=== PATIENT | male | born 1970 | race Caucasian/White ===

== ENCOUNTER 2024-06-23 17:18 | Outpatient (CLI) | payer OTHER, SELFPAY | END 2024-06-23 17:19 | disposition home or self-care (01) | PROVIDERS: Visit Provider Student in an Organized Health Care Education/Training Program | DX: S89.92XA Unspecified injury of left lower leg, initial encounter (principal); V49.40XA Driver injured in collision with unspecified motor vehicles in traffic accident, initial encounter; Y92.410 Unspecified street and highway as the place of occurrence of the external cause | CPT/HCPCS: A0425; A0433 ==

== ENCOUNTER 2024-06-23 18:10 | Emergency (ER) | payer OTHER, SELFPAY ==
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
[2024-06-23 18:21] VITALS: BP 181/97; PULSE 89; RESP 20; TEMP 36.4; O2SAT 98; BMI 35.0
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
--- OUTSIDE RECORDS SUMMARY | 2024-06-23 19:22 | XMS_ITS | Clinical Summary ---
Author Organization 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 Primary Care Provi brii Source Comments Patient records contain information from all sites at [facility]. For routine questions regarding patient records, call [phone] during business hours, M-F 8:00 AM - 5:00 PM Central Time. Record requests for emergency care only can be directed to [phone] at any time.[facility] Allergies Active Allergy Reactions Criticality Noted Date Comments Sulfamethoxazole-Trimet hoprim Other (see comments) 10/29/2010 Decreased platelet count Tetracycline Rash 05/21/2018 Medications * This document contains information received from the source organization and may not represent a complete record from that organization. cholecalciferol (VITAMIN D3) 25 mcg (1,000 Unit) capsule Take 1,000 Units by mouth daily. Active diclofenac sodium (VOLTAREN) 1 % gel Apply topically as needed. 9 Active multivit-min/foli c/vit K/lycop (MEN'S 50 PLUS MULTIVITAMIN ORAL) Take 1 tablet by mouth daily. Active omega-3 fatty acids-fish oil 300-1,000 mg capsule Take 1 capsule by mouth daily. Active UNABLE TO FIND Take 1 tablet by mouth daily. Misc Natural Products (OSTEO BI-FLEX TRIPLE STRENGTH PO) Active pantoprazole (Protonix) 40 mg EC tablet take 1 tablet by mouth every day before breakfast 90 tablet 3 4 Active lisinopril-hydroC HLOROthiazide 20-12.5 mg per tablet take 1 tablet by mouth every day 90 tablet 3 4 Active naproxen (Naprosyn) 500 mg tabletIndications :Pain Knee Left take 1 tablet by mouth twice a day as needed for pain 30 tablet 4 Active Active Problems Problem Noted Date Diagnosed Date Pain Back Thoracic 04/10/2023 Assessment & Plan (04/10/2023 6:13 PM SR. MANAGER MARKETING): I discussed with the patient might be most efficacious to proceed with a chest radiograph. I discussed that the yield may be low since he has not having any obvious thoracic related symptoms but it would be important to rule out any obvious inflammatory or other condition that might be occurring in the thorax. We can then proceed as clinically indicated with further workup. I discussed myofascial pain with him which might be the most likely working diagnosis. Pain Shoulder Left 04/10/2023 Assessment & Plan (04/10/2023 6:14 PM SR. MANAGER MARKETING): I discussed with the patient I was pleased that his shoulder is not causing him significant difficulty at this time, however I believe it would be reasonable to proceed with a shoulder radiograph, and I have outlined some home physical therapy exercises for him. We will use the radiograph is an anchor that if he has worsening shoulder pain we could consider corticosteroid injection in the subacromial region or proceed as indicated by clinical examination and radiograph. He is in agreement. We will proceed with same Hyperlipidemia 04/10/2023 Pain Knee Left 12/09/2022 Overview (12/09/2022): 12/09/22 David is here for we exam of his knee. He was seen by here October 29 for knee pain and swelling. He was having difficulties with flexion at the time and pain on the outside of his knee. Since his last exam his knee pain and swelling have improved. Continues to have difficulties with full flexion of the knee. He also continues to have some mild swelling of the knee especially on the upper lateral knee. He has been using naproxen as needed for pain which has been very helpful as well as a knee brace when he is at work. Aggravating symptoms include flexion and kneeling and going downstairs. He initially injured his knee 2-3 years ago when he was getting down from a ladder and missed the last step causing him to land on his left foot and twist his knee. He was never seen for this, felt like his knee gradually improved but never completely resolved. Denies any known injury with this most recent episode. Assessment & Plan (12/09/2022 10:08 AM CDT): Knee exam shows swelling along the joint line. I am unable to really reproduce any pain or any laxity of the knee. I do suspect he may have some arthritis. I think it would be helpful to start with x-ray. I have advised him to [facility] and have given him an outside referral. Continue naproxen as needed. If not improving with physical therapy we could consider injection. Because he has no weakness of the knee or abnormal exam findings, I discussed with him that I do not think MRI is appropriate. Spur Calcaneal Left 09/05/2020 Primary Osteoarthritis Knee Left 08/28/2018 Gastroesophageal Reflux Disease Without Esophagi tis 06/05/2018 Hypercholesterolemia 06/05/2018 Assessment & Plan (04/10/2023 6:14 PM SR. MANAGER MARKETING): I discussed with the patient is very reasonable to check his hemoglobin A1c and we will proceed accordingly. I can then report back to him Hypertension Essential Primary 06/05/2018 Immunizations Immunization Administration Dates Next Due H1N1 All Forms 04/04/2009 HepA Adult 12/09/2022(Deferred: Patient dec mariannezahida) HepB Adult (HEPLISAV-B) 12/09/2022(Deferred: Pat ient decision) Influenza TIV (IM) 12/23/2019,12/03/2011, 011 Influenza, Injectable, Mdck, Quadrivalent 01/08/2023,01/01/2022,01/02/2021 Influenza, Injectable, Quadrivalent 01/04/2020,1 ,12/12/2015 Influenza, Seasonal, Injectable 12/23/2019,12/02,12/04/2010 RZV (SHINGRIX) 12/09/2022(Deferred: Patient dec mariannezahida) Td (Adult), adsorbed 06/22/2003,12/22/1998,11/06 Td, (Adult) Unspecified 11/06/1988 Tdap 12/09/2022, 3(Deferred: Patient decision - Will receive at another time),06/17/2012 influenza trivalent vaccine (6 months and older)(PF) 02/03/2024 influenza vaccine quad (FLUZONE/FLUARIX) (6 months and older)(PF) 12/10/2016,12/01/2012 Family History Medical History Relation Name Comments Coronary artery disease Father Ketan Trip le bypass 2018 Hypertension Father Ketan Other cancer Father Ketan Bladder cancer, 2017 Prostate cancer Father Ketan 55 y/o Rheum arthritis Father Ketan 2017 Skin cancer Father Ketan Face, ears, arm s Relation Name Status Comments Father Ketan Social History Tobacco Use Types Packs/Day Years Used Date Smoking Tobacco: Former Cigarettes 0.5 22 0 03/24/1989 - 03/24/2011 Smokeless Tobacco: Former Chew Quit: 01/31/2015 Tobacco Cessation:Counseling Given: Not Answered Alcohol Use Standard Drinks/Week Comments Yes 28 (1 standard drink = 0.6 oz pu re alcohol) [facility] [employer] Answer Date Recorded In the past 12 months has e [employer], oil, or water [employer] threatened to shut off services in your home? No 06/20/2024 Humiliation, Afraid, Rape, and Kick questionnair e Answer Date Recorded Within the last year, have y ou been afraid of your partner or ex-partner? No 10/28/2022 Within the last year, have y ou been humiliated or emotionally abused in other ways by your partner or ex-partner? No Within the last year, have y ou been kicked, hit, slapped, or otherwise physically hurt by your partner or ex-partner? No 10/28/2022 Within the last year, have y ou been raped or forced to have any kind of sexual activity by your partner or ex-partner? No 10/28/2022 Social Connection and Isolat ion Panel [NHANES] Answer Date Recorded In a typical week, how many times do you talk on the phone with family, friends, or neighbors? More than three times a week 07/10/2021 How often do you get togethe r with friends or relatives? Once a week 07/10/2021 How often do you attend [facility] or moravian services? More than 4 times per year 07/10/2021 Do you belong to any clubs o r organizations such as hoahaoism groups, unions, fraternal or athletic groups, or school groups? No 07/10/2021 How often do you attend meet ings of the clubs or organizations you belong to? Patient declined 07/10/2021 Are you , , di vorced, , never , or living with a partner? 07/10/2021 AUDIT-C Answer Date Recorded Q1: How often do you have a drink containing alcohol? 4 or more times a week 07/10/2021 Q2: How many drinks containi ng alcohol do you have on a typical day when you are drinking? 5 or 6 Q3: How often do you have si x or more drinks on one occasion? Weekly 07/10/2021 Overall Financial Resource Strain (CARDIA) Answe r Date Recorded How hard is it for you to pa y for the very basics like food, housing, medical care, and heating? Not hard at all 10/28/2022 PHQ-2 Answer Date Recorded PHQ-2 Score 0 04/10/2023 [facility] - Occupational Stress Questionnaire Answer Date Recorded Do you feel stress - tense, restless, nervous, or anxious, or unable to sleep at night because your mind is troubled all the time - these days? Not at all 07/10/2021 Exercise Vital Sign Answer Date Recorde d On average, how many days pe r week do you engage in moderate to strenuous exercise (like a brisk walk)? 0 days 06/20/2024 On average, how many minutes do you engage in exercise at this level? 0 min 06/20/2024 Hunger Vital Sign Answer Date Recorded Within the past 12 months, y ou worried that your food would run out before you got the money to buy more. Never true 06/21/19 25 Within the past 12 months, t he food you bought just didn't last and you didn't have money to get more. Never true 06/20/2024 PRAPARE - Transportation Answer Date Re corded In the past 12 months, has l ack of transportation kept you from medical appointments or from getting medications? No 05/24 In the past 12 months, has l ack of transportation kept you from meetings, work, or from getting things needed for daily living? No 06/20/2024 Nutrition Answer Date Recorded On average, how many serving s of fruits and vegetables do you eat per day (serving size is equal to 1 cup or approximately the size of a tennis ball)? 0-2 06/20/2024 Dental Answer Date Recorded Dental: Regular Dentist Yes 05/10/19 Employment Answer Date Recorded Employment status Employed and actively working without restrictions 06/20/2024 Housing Stability Answer Date Recorded What is your living situation today? [facility] 06/20/2024 Education Answer Date Recorded What is the highest level of school you have completed or the highest degree you have received? Associate degree: occupational, technical, or vocational program 05/10/2021 Sex and Gender Information Value Date Recorded Sex Assigned at Male 05/10/2021 7:34 PM SR. MANAGER MARKETING Legal Sex Male 6:42 AM SR. MANAGER MARKETING Gender Identity Male 05/10/2021 7:34 PM SR. MANAGER MARKETING Sexual Orientation Straight 05/10/2021 7: 34 PM SR. MANAGER MARKETING Last Filed Vital Signs Vital Sign Reading Time Taken Comments Blood Pressure 127/77 04/10/2023 8:46 AM SR. MANAGER MARKETING Pulse 61 04/10/2023 8:46 AM SR. MANAGER MARKETING Temperature 36.6 C (97.9 F) 07/29/2022 2:16 PM CDT Respiratory Rate 15 11/13/2021 12:09 PM CDT Oxygen Saturation 96% 11/13/2021 12:09 PM CDT Inhaled Oxygen Concentration - - Weight 122 kg (269 lb 13.5 oz) 04/10/2023 8:46 A M SR. MANAGER MARKETING Height 182.1 cm (5' 11.69) 04/10/2023 8:[address] Body Mass Index 36.91 04/10/2023 8:46 AM SR. MANAGER MARKETING Plan of Treatment Upcoming Encounters Date Type Department Care Team (Late st Contact Info) Description 06/25/2024 9:00 AM CDT Nurse Only Department of Family Medicine, [facility], in [place], [place] [address] [place] [address] Rustam Lopez M.D., M.S. [address] [place] [address] Health Maintenance Due Date Last Done Comments CT Colonography 1970 Cologuard 1970 FIT 1970 HIV Screening 1970 Hepatitis C Screening 1970 Visit: Chronic Disease, age 18+ 1970 Hepatitis A Vaccines (1 of 2 - Risk 2-dose series) 1989 Hepatitis B Vaccines (1 of 3 - 19+ 3-dose series) 1989 Pneumococcal vaccine (50+ years) (1 of 1 - PCV) 2020 Zoster Vaccines (1 of 2) 2020 COVID-19 Vaccine (3 - season) 2023 02/09/2021, 12/07/2020 Depression Screening (Annual PHQ-2) 03/24/2024 Office Visit for Blood Pressure Check / Re-check 04/10/2024 04/10/2023 Creatinine Level (Kidney Function Test) 10/12/2024 10/13/2023, 04/10/2023, 08/05/2022, Additional history exists Lipid (Cholesterol) Screening 10/12/2024 10/13/2023, 08/05/2022, 08/17/2020, Additional history exists Potassium Level 10/12/2024 10/13/2023, 03/24, 08/05/2022, Additional history exists Sodium Level 10/12/2024 10/13/2023, 07/22, 08/17/2020, Additional history exists Fasting Glucose for Diabetes Screening 10/12/2026 10/13/2023, 04/10/2023, 08/05/2022 Colonoscopy 11/13/2028 11/13/2021, 11/13/2021 Colorectal Cancer Screening 11/13/2028 DTaP,Tdap,and Td Vaccines (4 - Td or Tdap) 12/09/2032 12/09/2022, 06/17/2012, 06/22/2003, Additional history exists Influenza Vaccine Completed 02/03/2024, , 01/01/2022, Additional history exists IPV Vaccines Aged Out No longer eligi ble based on patient's age to complete this topic Procedures Procedure Name Priority Date/Time Associated Diagnosis Comments LIPID PANEL, S Routine 10/13/2023 10:01 AM CDT Hypercholesterolemia BASIC METABOLIC PANEL, S/P Routine 10/13/2023 10:01 AM CDT Monitoring For Therapeutic Drug Therapy COLONOSCOPY Routine 11/13/2021 11:00 AM CDT Screening Colon Cancer Average Risk from Last 3 Months or Most Recently Relevant to Health Maintenance Results * (ABNORMAL) Lipid Panel (10/13/2023 10:01 AM CDT) Triglycerides 155(H) mg/dL 10/13/2023 1:39 PM CDT DTL Comment: ----REFERENCE VALUE---- Normal: <150 mg/dL Borderline High: 150-199 mg/dL High: 200-499 mg/dL Very High: > or =500 mg/dL Cholesterol, Total 220(H) mg/dL 2023 1:39 PM CDT DTL Comment: ----REFERENCE VALUE---- Desirable: < 200 mg/dL Borderline High: 200 - 239 mg/dL High: > or = 240 mg/dL Cholesterol, LDL, Calculated 152(H) mg/dL 10/13/2023 1:39 PM CDT DTL Comment: ----REFERENCE VALUE---- Desirable: <100 mg/dL Above Desirable: 100-129 mg/dL Borderline High: 130-159 mg/dL High: 160-189 mg/dL Very High: >=190 mg/dL ----ADDITIONAL INFORMATION---- LDL cholesterol calculated using the Flor/NIH equation. Cholesterol, HDL, S 40 >=40 mg/dL 10/13/2023 1:39 PM CDT DTL Cholesterol, Non-HDL, Calculated 180(H) mg/dL 10/13/2023 1:39 PM CDT DTL Comment: ----REFERENCE VALUE---- Desirable: <130 mg/dL Above Desirable: 130-159 mg/dL Borderline High: 160-189 mg/dL High: 190-219 mg/dL Very High: > or =220 mg/dL Fasting (8 HR or more) Yes 10/13/2023 10:01 AM CDT DTL Blood (Blood, Venous) 10/13/2023 10:01 AM CDT 10/13/2023 1:14 PM CDT Oscar Perez M.D. LAB BLOOD ADD-ON Final Result Performing Organization Address [facility]/State/ZIP Co de Phone Number [facility] [address] [place] [address], [facility] DTL [facility] [address] [place] [address] * Basic Metabolic Panel (10/13/2023 10:01 AM CDT) Pathologist [facility] Potassium, S 4.4 3.6 - 5.2 mmol/L 10/13/2023 1:39 PM CDT DTL Sodium, S 140 135 - 145 mmol/L 10/13/2023 1:39 PM CDT DTL Chloride, S 104 98 - 107 mmol/L 10/13/2023 1:39 PM CDT DTL Bicarbonate, S 27 22 - 29 mmol/L 10/13/2023 1:39 PM CDT DTL Anion Gap 9 7 - 15 10/13/2023 1:39 PM CDT DTL BUN (Blood Urea Nitrogen), S 15 8 - 24 mg/dL 10/13/2023 1:39 PM CDT DTL Creatinine 1.05 0.74 - 1.35 mg/dL 10/13/2023 1:39 PM CDT DTL Estimated GFR (eGFR) 85 >=60 mL/min/BSA 10/13/2023 1:39 PM CDT DTL Comment: Estimated GFR calculated using the 2020 CKD_EPI creatinine equation. Calcium, Total, S 9.6 8.6 - 10.0 mg/dL 10/13/2023 1:39 PM CDT DTL Glucose, S 87 70 - 140 mg/dL 10/13/2023 1:39 PM CDT DTL Blood (Blood, Venous) 10/13/2023 10:01 AM CDT 10/13/2023 1:14 PM CDT Oscar Perez M.D. LAB BLOOD ADD-ON Final Result [facility] [address] [place] [address], [place] DTL [facility] [address] [place] [address] from Last 3 Months or Most Recently Relevant to Health Maintenance Insurance [employer] [place] [employer] Care Teams Nozzle And Sleeve Worker Relationship Specialty Start Date End Date Rustam Lopez M.D., M.S. [address] [place] [address] PCP - General 12/17/23
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
[2024-06-23 19:40] VITALS: BP 146/93; PULSE 88; RESP 18; O2SAT 97
[2024-06-23 20:13] VITALS: BP 165/85; PULSE 84; RESP 18; TEMP 36.7; O2SAT 97
[2024-06-23] MEDS: LIDOCAINE 1%-EPI 1:100,000 5 ML INFILTRATI (20:15)
[2024-06-23 20:18] VITALS: BP 165/85; PULSE 84; RESP 18; TEMP 36.7
== END 2024-06-23 20:23 | disposition home or self-care (01) ==
PROVIDERS: Emergency Provider Student in an Organized Health Care Education/Training Program
DX: M25.522 Pain in left elbow (principal); S92.422A Displaced fracture of distal phalanx of left great toe, initial encounter for closed fracture; V43.52XA Car driver injured in collision with other type car in traffic accident, initial encounter
CPT/HCPCS: 28495; 73080; 73130; 73660; 99284; 99291; G0390